=== PATIENT | male | born 1985 | race Caucasian/White ===

== ENCOUNTER 2016-12-25 12:31 | Outpatient (CLI) | payer BC ==
[~2016-12-25] VITALS: Ht 175.3 cm; Wt 86.2 kg
[~2016-12-25 12:31] MED LIST: /CIPR75TA OR; AMBI10TA OR; AMBI5TAB PO; ANUS2.5C2 PR; APRISO OR; COLA100C2 OR; FISH1000 PO; FLAG500T OR; IRON65TA PO; K-TA10TA2 PO; MIRALEX OR; MORP10EL PO; MORP15TA2 PO; MS C30TA PO; MULTCAP PO; MULTIVIT OR; NS 1,000 ML IV SCH; No Home Meds; PENT500C PO; PRED20TA OR; PRED20TA PO; PRED20TAB PO; REMICADE; VICO5TAB OR; ZOLO25TA PO; diphenhydrAMINE 25 MG CAP PO SCH; senna OR
[2016-12-25] MEDS ORDERED: inFLIXimab INJECTION 500 MG in NS 200 ML IV ONE (13:00)
== END 2016-12-25 15:00 | disposition home or self-care (01) ==
LOC: M INFU 12:31
PROVIDERS: ATTEND Internal Medicine Gastroenterology
DX: K51.90 Ulcerative colitis, unspecified, without complications (principal); Z79.899 Other long term (current) drug therapy
CPT/HCPCS: 96413; 96415; J1745

== ENCOUNTER 2017-01-05 00:21 | Emergency (ER) | payer BC ==
[~2017-01-05 00:21] MED LIST changes: -NS 1,000 ML IV SCH; -diphenhydrAMINE 25 MG CAP PO SCH
[2017-01-05] MEDS ORDERED: dexameTHASONE 4 MG/ML 1ML VIAL (J1100) As Ordered ONE (00:57)
[2017-01-05 01:04] LABS: BASO # 0.1 K/mm3 (0.0-0.2); BASO % 0.9 % (0.0-1.0); EOS % 0.9 % (0.0-3.0); LARGE UNSTAINED CELL # 0.2 K/mm3 (0.0-0.4); LARGE UNSTAINED CELL % 3.6 % (0.0-4.0); LYMPH % 33.3 % (24.0-44.0); MEAN CORPUSCULAR HEMOGLOBIN 27.8 pg (27.0-33.0); MEAN CORPUSCULAR HGB CONC 32.4 g/dl (32.0-36.5); MEAN CORPUSCULAR VOLUME 86.1 fl (80.0-96.0); MONO # 0.6 K/mm3 (0.0-0.8); MONO % 9.4 % (0.0-5.0); NEUTROPHILS # 3.1 K/mm3 (1.8-7.7); NEUTROPHILS % 51.9 % (36.0-66.0); PLATELET COUNT, AUTOMATED 204 k/mm3 (150-450); RED CELL DISTRIBUTION WIDTH 13.7 % (11.5-14.5); WHITE BLOOD COUNT 5.9 K/mm3 (4.0-10.0)
[2017-01-05 01:14] LABS: ABG BASE EXCESS 0.6 (-2.0-2.0); ABG DEVICE NASAL CANN; ABG HCO3 24.8 MEQ/L (22.0-26.0); ABG PARTIAL PRESSURE CO2 38.5 mmHg (35.0-45.0); ABG PARTIAL PRESSURE O2 90.7 mmHg (75.0-100.0); ABG TOTAL CO2 25.9 MEQ/L (22.0-29.0); ABG pH (ARTERIAL) 7.426 UNITS (7.350-7.450)
[2017-01-05 01:21] LABS: ALBUMIN 3.8 GM/DL (3.2-5.2); ALBUMIN/GLOBULIN RATIO 0.84 (1.00-1.93); ALKALINE PHOSPHATASE 124 U/L (45-117); ALT/SGPT 27 U/L (12-78); AMYLASE 48 U/L (25-115); ANION GAP 8 MEQ/L (8-16); AST/SGOT 25 U/L (15-37); BILIRUBIN,DIRECT < 0.1 MG/DL (0.0-0.2); BILIRUBIN,TOTAL 0.3 MG/DL (0.2-1.0); BLOOD UREA NITROGEN 14 MG/DL (7-18); CALCIUM LEVEL 8.1 MG/DL (8.5-10.1); CARBON DIOXIDE LEVEL 29 MEQ/L (21-32); CHLORIDE LEVEL 102 MEQ/L (98-107); CREATININE FOR GFR 0.88 MG/DL (0.70-1.30); GLOMERULAR FILTRATION RATE > 60.0 (>60); GLUCOSE, FASTING 99 MG/DL (70-105); POTASSIUM SERUM 3.5 MEQ/L (3.5-5.1); SODIUM LEVEL 139 MEQ/L (136-145); TOTAL PROTEIN 8.3 GM/DL (6.4-8.2)
[2017-01-05] MEDS ORDERED: HYDROmorphone HCL 1 MG/ML SYRINGE (J1170) As Ordered ONE (02:19)
--- NOTE | 2017-01-05 05:14 | EDDOCDS ---
Physician Documentation [facility] Name: Vijay Christensen Age: 31 yrs Sex: Male : 1985 Arrival Date: 01/05/2017 Time: 00:21 Bed 17 Private MD: Disposition: 01/05/17 04:59 Discharged to Home/Self Care. Impression: Crohn's disease [regional enteritis]. - Condition is Stable. - Medication Reconciliation, Local Pharmacy Hours form. - Follow up: Private Physician; When: Call to arrange an appointment; Reason: Recheck today's complaints. - Problem is chronic. - Symptoms have improved. Historical: - Allergies: No known drug Allergies; - Home Meds: 1. Fish Oil Oral daily 2. Multivitamin Oral daily 3. Remicade 100 mg intravenous solr every 8 wks - PMHx: c-diff; Crohn's; - PSHx: stool transplant; - Social history: Smoking status: Patient states was never smoker of tobacco. No barriers to communication noted, The patient speaks fluent Polish, Speaks appropriately for age. - Family history: Not pertinent. - : The pt / caregiver states he / she is not on anticoagulants. Home medication list is obtained from the patient. - Exposure Risk Screening:: None identified. Vital Signs: 01/05 00:36 BP 141 / 90 (auto/); Pulse 90; Resp 16; Temp 99(TE); Pulse Ox 98% on R/A; jo3 05:11 BP 124 / 77; Pulse 83; Resp 20; Temp 96.5(O); Pulse Ox 98% on R/A; Pain 0/10; jmv MDM: 00:29 ECG WITH READING ER PHYS+CARDIAG ordered. EDMS 00:34 IV Saline Lock ordered. cs11 00:34 NS 0.9% 1000 ml IV at bolus once ordered. cs11 00:35 Call Respiratory ordered. cs11 00:35 CBC with Diff Ordered. EDMS 00:35 MED Profile Ordered. EDMS 00:35 Liver Profile Ordered. EDMS 00:35 Amylase Ordered. EDMS 00:35 Lipase Ordered. EDMS 00:35 Cardiac Marker Panel Ordered. EDMS 00:35 -Arterial Blood Gas Ordered. EDMS 00:48 Call Respiratory complete. af2 00:55 Dexamethasone 12 mg IV at bolus once ordered. cs11 02:17 CBC with Diff Reviewed. cs11 02:17 MED Profile Reviewed. cs11 02:17 Liver Profile Reviewed. cs11 02:17 Amylase Reviewed. cs11 02:17 Lipase Reviewed. cs11 02:17 Cardiac Marker Panel Reviewed. cs11 02:17 -Arterial Blood Gas Reviewed. cs11 02:17 Dilaudid - HYDROmorphone 0.5 mg IVP once ordered. cs11 03:07 Financial registration complete. hs2 03:44 [facility] Payment Agreement was scanned into [employer] and attached to record. hs2 Administered Medications: 00:48 Drug: NS 0.9% 1000 ml [sodium chloride 0.9 % intravenous solution] Route: IV; Rate: af2 bolus; Site: right antecubital; 01:04 Drug: Dexamethasone 12 mg [dexamethasone 4 mg/mL injection solution] Route: IV; Rate: af2 bolus; Site: right antecubital; 02:13 Follow up: IV Status: Completed infusion af2 02:24 Drug: Dilaudid - HYDROmorphone 0.5 mg [hydromorphone 1 mg/mL injection syringe (0.5 af2 mL)] Route: IVP; Site: right antecubital; Signatures: Dispatcher [employer] EDBrandee Campbell RN RN jo3 Grant Orourke, DO cs11 Jyoti Acuña RN RN af2 Amy Seaman, Reg Reg hs2 The chart was reviewed and I authenticate all verbal orders and agree with the evaluation and treatment provided.Attachments: 03:44 [facility] Payment Agreement hs2 MTDD
--- NOTE | 2017-01-05 05:14 | EDDOCDS ---
Nurse's Notes [facility] Name: Vijay Christensen Age: 31 yrs Sex: Male : 1985 Arrival Date: 01/05/2017 Time: 00:21 Bed 17 Private MD: Diagnosis: Crohn's disease [regional enteritis] Presentation: 01/05 00:28 Presenting complaint: Patient states: Mid anterior chest pain which pt describe as jo3 heaviness/pressure with SOB. Also having a Crohn's flare up. EKG completed 2 weeks ago for mild chest pain and pt believes it was normal. states that pain and SOB has worsened. Adult Sepsis Screening:. Suicide/Homicide risk assessment- the patient denies having any suicidal and/or homicidal ideations and does not present with any other emotional, behavioral or mental health complaints. 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 Transition of care: patient was not received from another setting of care. 00:28 Method Of Arrival: Walkin/Carried/Asstd jo3 00:28 Acuity: Unassigned jo3 00:49 Adult Sepsis Screening: The patient does not have new or worsening altered mentation. jo3 Patient's respiratory rate is less than 22. Systolic blood pressure is greater than 100. Patient has a qSOFA score of 0- Negative Sepsis Screen. 00:49 Acuity: TORI Level 3 jo3 Triage Assessment: 00:34 General: Appears in no apparent distress. HIV screening NA for this visit Offered jo3 previously. Neurological: Level of Consciousness is awake, alert, Oriented to person, place, time. Cardiovascular: Chest pain is located in mid anterior chest. Respiratory: Airway is patent Respiratory effort is. Derm: Skin is Skin is pink, warm & dry. Historical: - Allergies: No known drug Allergies; - Home Meds: 1. Fish Oil Oral daily 2. Multivitamin Oral daily 3. Remicade 100 mg intravenous solr every 8 wks - PMHx: c-diff; Crohn's; - PSHx: stool transplant; - Social history: Smoking status: Patient states was never smoker of tobacco. No barriers to communication noted, The patient speaks fluent Azerbaijani, Speaks appropriately for age. - Family history: Not pertinent. - : The pt / caregiver states he / she is not on anticoagulants. Home medication list is obtained from the patient. - Exposure Risk Screening:: None identified. Screenin:49 Screening information is obtained from the patient. Fall risk: No risks identified. af2 Assistance ADL's: requires no assistance with activities of daily living. Abuse/DV Screen: The patient / caregiver reports he/she is: not in a situation that causes fear, pain or injury. Nutritional screening: No deficits noted. Advance Directives: Further advance directive information is declined. home support is adequate. Assessment: 00:49 General: Appears in no apparent distress, comfortable, Behavior is appropriate for age, af2 cooperative. Neurological: Level of Consciousness is awake, alert, obeys commands, Oriented to person, place, time. Cardiovascular: Rhythm is sinus rhythm No ectopy. Chest pain reproducible with deep breaths. . Respiratory: Airway is patent Respiratory effort is even, unlabored, Respiratory pattern is regular, symmetrical, Breath sounds are clear in right upper lobe, left upper lobe, right middle lobe, left lower lobe and right lower lobe Reports shortness of breath at rest. GI: Reports bloody stools diarrhea, lower abdominal pain, nausea. Derm: Skin is normal. 01:59 General: Appears in no apparent distress, comfortable, Behavior is appropriate for age, af2 cooperative. Neurological: Level of Consciousness is awake, alert, obeys commands, Oriented to person, place, time. Respiratory: Airway is patent Respiratory effort is even, unlabored. Derm: Skin is normal. 03:00 General: Appears in no apparent distress, comfortable, Behavior is appropriate for age, af2 cooperative. Neurological: Level of Consciousness is awake, alert, obeys commands, Oriented to person, place, time. Respiratory: Airway is patent Respiratory effort is even, unlabored. Derm: Skin is normal. 04:00 General: Appears in no apparent distress, comfortable, Behavior is appropriate for age, af2 cooperative. Respiratory: Airway is patent Respiratory effort is even, unlabored. Derm: Skin is normal. 05:12 General: Appears in no apparent distress, comfortable, Behavior is appropriate for age, af2 cooperative. Neurological: Level of Consciousness is awake, alert, obeys commands. Respiratory: Airway is patent Respiratory effort is even, unlabored. Derm: Skin is pink, warm & dry. Vital Signs: 00:36 BP 141 / 90 (auto/); Pulse 90; Resp 16; Temp 99(TE); Pulse Ox 98% on R/A; jo3 05:11 BP 124 / 77; Pulse 83; Resp 20; Temp 96.5(O); Pulse Ox 98% on R/A; Pain 0/10; jmv Vitals: 00:34 Log In Time: January 05, 2017 at 00:23. jo3 ED Course: 00:22 Patient visited by mAy Seaman Reg. hs2 00:22 Patient moved to Waiting hs2 00:25 Jyoti Acuña RN is Primary Nurse. jo3 00:25 Patient moved to 17 jo3 00:26 Grant Orourke DO is Attending Physician. cs11 00:26 Patient visited by Grant Orourke DO. cs11 00:33 Triage Initiated jo3 00:35 Patient visited by Brandee Javed RN. jo3 00:48 CBC with Diff Sent. af2 00:48 MED Profile Sent. af2 00:49 Patient visited by Chavo Barron PCA. jmv 00:49 Pt greeted and oriented to ED. Patient advised of names of staff involved in care, [facility] location of call encarnacion, wait times and NPO status. Patient has correct armband on for positive identification. Placed in gown. Bed in low position. Call light in reach. Side rails up X2. monitoring manager on. Pulse ox on. NIBP on. 00:49 Liver Profile Sent. af2 00:49 Amylase Sent. af2 00:49 Lipase Sent. af2 00:49 Cardiac Marker Panel Sent. af2 00:49 EKG done. (by ED staff). Reviewed by Gratn Orourke DO. jmv 00:51 Patient visited by Jyoti Acuña RN. af2 01:08 -Arterial Blood Gas Sent. jh6 01:52 Patient visited by Jyoti Acuña RN. af2 01:59 Patient visited by Jyoti Acuña RN. af2 02:14 Patient visited by Jyoti Acuña RN. af2 03:15 Patient visited by Jyoti Acuña RN. af2 03:33 Patient visited by Jyoti Acuña RN. af2 03:44 [facility] Payment Agreement was scanned into [employer] and attached to record. hs2 04:48 Patient visited by Jyoti Acuña RN. af2 05:12 Patient visited by Chavo Barron PCA. jmv 05:13 The patient / caregiver is instructed regarding the plan of care and ED course. af2 05:13 Inserted saline lock: 18 gauge in right antecubital area and blood collected. The af2 patient tolerated the procedure well. 05:13 Discontinued IV lock intact, bleeding controlled, pressure dressing applied, No af2 redness/swelling at site. No procedures done that require assistance. Administered Medications: 00:48 Drug: NS 0.9% 1000 ml [sodium chloride 0.9 % intravenous solution] Route: IV; Rate: af2 bolus; Site: right antecubital; 01:04 Drug: Dexamethasone 12 mg [dexamethasone 4 mg/mL injection solution] Route: IV; Rate: af2 bolus; Site: right antecubital; 02:13 Follow up: IV Status: Completed infusion af2 02:24 Drug: Dilaudid - HYDROmorphone 0.5 mg [hydromorphone 1 mg/mL injection syringe (0.5 af2 mL)] Route: IVP; Site: right antecubital; RT: 01:08 ABG's drawn from right radial artery pressure held for 5 minutes no bleeding noted jh6 pressure bandage applied specimen sent pt. tolerated well. Order Results: Lab Order: CBC with Diff; SPEC'M 01/05/17 00:46 Test: WHITE BLOOD COUNT; Value: 5.9; Range: 4.0-10.0; Units: K/mm3; Status: F Test: RED BLOOD COUNT; Value: 5.16; Range: 4.30-6.10; Units: M/mm3; Status: F Test: HEMOGLOBIN; Value: 14.4; Range: 14.0-18.0; Units: g/dl; Status: F Test: HEMATOCRIT; Value: 44.4; Range: 42.0-52.0; Units: %; Status: F Test: MEAN CORPUSCULAR VOLUME; Value: 86.1; Range: 80.0-96.0; Units: fl; Status: F Test: MEAN CORPUSCULAR HEMOGLOBIN; Value: 27.8; Range: 27.0-33.0; Units: pg; Status: F Test: MEAN CORPUSCULAR HGB CONC; Value: 32.4; Range: 32.0-36.5; Units: g/dl; Status: F Test: RED CELL DISTRIBUTION WIDTH; Value: 13.7; Range: 11.5-14.5; Units: %; Status: F Test: PLATELET COUNT, AUTOMATED; Value: 204; Range: 150-450; Units: k/mm3; Status: F Test: NEUTROPHILS %; Value: 51.9; Range: 36.0-66.0; Units: %; Status: F Test: LYMPH %; Value: 33.3; Range: 24.0-44.0; Units: %; Status: F Test: MONO %; Value: 9.4; Range: 0.0-5.0; Abnormal: Above high normal; Units: %; Status: F Test: EOS %; Value: 0.9; Range: 0.0-3.0; Units: %; Status: F Test: BASO %; Value: 0.9; Range: 0.0-1.0; Units: %; Status: F Test: LARGE UNSTAINED CELL %; Value: 3.6; Range: 0.0-4.0; Units: %; Status: F Test: NEUTROPHILS #; Value: 3.1; Range: 1.8-7.7; Units: K/mm3; Status: F Test: LYMPH #; Value: 2.0; Range: 1.5-4.5; Units: K/mm3; Status: F Test: MONO #; Value: 0.6; Range: 0.0-0.8; Units: K/mm3; Status: F Test: EOS #; Value: 0.0; Range: 0.0-0.50; Units: K/mm3; Status: F Test: BASO #; Value: 0.1; Range: 0.0-0.2; Units: K/mm3; Status: F Test: LARGE UNSTAINED CELL #; Value: 0.2; Range: 0.0-0.4; Units: K/mm3; Status: F Lab Order: [facility] Profile; [facility]'01/05/17 00:46 Test: GLUCOSE, FASTING; Value: 99; Range: 70-105; Units: MG/DL; Status: F Test: BLOOD UREA NITROGEN; Value: 14; Range: 7-18; Units: MG/DL; Status: F Test: CREATININE FOR GFR; Value: 0.88; Range: 0.70-1.30; Units: MG/DL; Status: F Test: GLOMERULAR FILTRATION RATE; Value: > 60.0; Range: >60; Status: F Test: SODIUM LEVEL; Value: 139; Range: 136-145; Units: MEQ/L; Status: F Test: POTASSIUM SERUM; Value: 3.5; Range: 3.5-5.1; Units: MEQ/L; Status: F Test: CHLORIDE LEVEL; Value: 102; Range: 98-107; Units: MEQ/L; Status: F Test: CARBON DIOXIDE LEVEL; Value: 29; Range: 21-32; Units: MEQ/L; Status: F Test: ANION GAP; Value: 8; Range: 8-16; Units: MEQ/L; Status: F Test: CALCIUM LEVEL; Value: 8.1; Range: 8.5-10.1; Abnormal: Below low normal; Units: MG/DL; Status: F Test Note: ; Units are mL/min/1.73 m2 Chronic Kidney Disease Staging per NKF: Stage I & II GFR >=60 Normal to Mildly Decreased Stage III GFR 30-59 Moderately Decreased Stage IV GFR 15-29 Severely Decreased Stage V GFR <15 Very Little GFR Left ESRD GFR <15 on MANAGER PEDIATRIC Lab Order: Liver Profile; [facility]'01/05/17 00:46 Test: AST/SGOT; Value: 25; Range: 15-37; Units: U/L; Status: F Test: ALT/SGPT; Value: 27; Range: 12-78; Units: U/L; Status: F Test: ALKALINE PHOSPHATASE; Value: 124; Range: 45-117; Abnormal: Above high normal; Units: U/L; Status: F Test: BILIRUBIN,TOTAL; Value: 0.3; Range: 0.2-1.0; Units: MG/DL; Status: F Test: BILIRUBIN,DIRECT; Value: < 0.1; Range: 0.0-0.2; Units: MG/DL; Status: F Test: TOTAL PROTEIN; Value: 8.3; Range: 6.4-8.2; Abnormal: Above high normal; Units: GM/DL; Status: F Test: ALBUMIN; Value: 3.8; Range: 3.2-5.2; Units: GM/DL; Status: F Test: ALBUMIN/GLOBULIN RATIO; Value: 0.84; Range: 1.00-1.93; Abnormal: Below low normal; Status: F Lab Order: Amylase; [facility] 01/05/17 00:46 Test: AMYLASE; Value: 48; Range: 25-115; Units: U/L; Status: F Lab Order: Lipase; [facility] 01/05/17 00:46 Test: LIPASE; Value: 185; Range: 73-393; Units: U/L; Status: F Lab Order: Cardiac Marker Panel; [facility] 01/05/17 00:46 Test: CPK CREATINE PHOSPHOKINASE; Value: 205; Range: 39-308; Units: U/L; Status: F Test: CK-MB VALUE MASS; Value: 1.2; Range: 0.0-3.6; Units: NG/ML; Status: F Test: MB/CK RELATIVE INDEX; Value: 0.58; Range: < OR =4; Status: F Test: TROPONIN I; Value: < 0.02; Range: < 0.10; Units: NG/ML; Status: F Test Note: ; DIAGNOSIS CRITERIA MMB ng/ml Relative Index (RI) NON-AMI < or = 5 N/A [place] ZONE > 5 < or = 4 AMI > 5 > 4 Lab Order: -Arterial Blood Gas; 01/05/17 01:01 Test: ABG pH (ARTERIAL); Value: 7.426; Range: 7.350-7.450; Units: UNITS; Status: F Test: ABG PARTIAL PRESSURE CO2; Value: 38.5; Range: 35.0-45.0; Units: mmHg; Status: F Test: ABG PARTIAL PRESSURE O2; Value: 90.7; Range: 75.0-100.0; Units: mmHg; Status: F Test: ABG TOTAL CO2; Value: 25.9; Range: 22.0-29.0; Units: MEQ/L; Status: F Test: ABG HCO3; Value: 24.8; Range: 22.0-26.0; Units: MEQ/L; Status: F Test: ABG BASE EXCESS; Value: 0.6; Range: -2.0-2.0; Status: F Test: ABG STANDARD HCO3; Value: 25.0; Range: 22.0-26.0; Units: MEQ/L; Status: F Test: ABG O2 SATURATION; Value: 97.3; Range: 95.0-99.0; Units: %; Status: F Test: ABG DEVICE; Value: NASAL BRYAN; Status: F Outcome: 04:59 Discharge ordered by Provider. cs11 05:13 Patient left the ED. af2 Signatures: Brandee Javed RN RN Alon Ross jh6 Grant Orourke, DO cs11 Jyoti Acuña RN RN af2 Amy Seaman, Reg Reg hs2 Chavo Barron, KJ DOCKMASTER jmv MTDD
--- NOTE | 2017-01-05 07:29 | ECGEPIP ---
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
--- NOTE | 2017-01-07 06:14 | EDDOCDS ---
Physician Documentation [facility] Name: Vijay Christensen Age: 31 yrs Sex: Male : 1985 Arrival Date: 01/05/2017 Time: 00:21 Bed 17 Private MD: Disposition: 01/05/17 04:59 Discharged to Home/Self Care. Impression: Crohn's disease [regional enteritis]. - Condition is Stable. - Medication Reconciliation, Local Pharmacy Hours form. - Follow up: Private Physician; When: Call to arrange an appointment; Reason: Recheck today's complaints. - Problem is chronic. - Symptoms have improved. Historical: - Allergies: No known drug Allergies; - Home Meds: 1. Fish Oil Oral daily 2. Multivitamin Oral daily 3. Remicade 100 mg intravenous solr every 8 wks - PMHx: c-diff; Crohn's; - PSHx: stool transplant; - Social history: Smoking status: Patient states was never smoker of tobacco. No barriers to communication noted, The patient speaks fluent Mongolian, Speaks appropriately for age. - Family history: Not pertinent. - : The pt / caregiver states he / she is not on anticoagulants. Home medication list is obtained from the patient. - Exposure Risk Screening:: None identified. Vital Signs: 01/05 00:36 BP 141 / 90 (auto/); Pulse 90; Resp 16; Temp 99(TE); Pulse Ox 98% on R/A; jo3 05:11 BP 124 / 77; Pulse 83; Resp 20; Temp 96.5(O); Pulse Ox 98% on R/A; Pain 0/10; jmv MDM: 00:29 ECG WITH READING ER PHYS+CARDIAG ordered. EDMS 00:34 IV Saline Lock ordered. cs11 00:34 NS 0.9% 1000 ml IV at bolus once ordered. cs11 00:35 Call Respiratory ordered. cs11 00:35 CBC with Diff Ordered. EDMS 00:35 MED Profile Ordered. EDMS 00:35 Liver Profile Ordered. EDMS 00:35 Amylase Ordered. EDMS 00:35 Lipase Ordered. EDMS 00:35 Cardiac Marker Panel Ordered. EDMS 00:35 -Arterial Blood Gas Ordered. EDMS 00:48 Call Respiratory complete. af2 00:55 Dexamethasone 12 mg IV at bolus once ordered. cs11 02:17 CBC with Diff Reviewed. cs11 02:17 MED Profile Reviewed. cs11 02:17 Liver Profile Reviewed. cs11 02:17 Amylase Reviewed. cs11 02:17 Lipase Reviewed. cs11 02:17 Cardiac Marker Panel Reviewed. cs11 02:17 -Arterial Blood Gas Reviewed. cs11 02:17 Dilaudid - HYDROmorphone 0.5 mg IVP once ordered. cs11 03:07 Financial registration complete. hs2 03:44 [facility] Payment Agreement was scanned into [employer] and attached to record. hs2 09: T-Sheet-- Draft Copy was scanned into [employer] and attached to record. seh Administered Medications: 00:48 Drug: NS 0.9% 1000 ml [sodium chloride 0.9 % intravenous solution] Route: IV; Rate: af2 bolus; Site: right antecubital; 01:04 Drug: Dexamethasone 12 mg [dexamethasone 4 mg/mL injection solution] Route: IV; Rate: af2 bolus; Site: right antecubital; 02:13 Follow up: IV Status: Completed infusion af2 02:24 Drug: Dilaudid - HYDROmorphone 0.5 mg [hydromorphone 1 mg/mL injection syringe (0.5 af2 mL)] Route: IVP; Site: right antecubital; Signatures: Dispatcher [employer] Brandee Thomas RN RN jo3 Grant Orourke, DO cs11 Jyoti Acuña RN RN af2 Amy Seaman, Reg Reg hs2 Aminah Corley [facility] The chart was reviewed and I authenticate all verbal orders and agree with the evaluation and treatment provided.Attachments: 03:44 [facility] Payment Agreement hs2 09:02 T-Sheet-- Draft Copy seh Chart Complete MTDD
--- NOTE | 2017-01-07 06:14 | EDDOCDS ---
Physician Documentation [facility] Name: Vijay Christensen Age: 31 yrs Sex: Male : 1985 Arrival Date: 01/05/2017 Time: 00:21 Bed 17 Private MD: Disposition: 01/05/17 04:59 Discharged to Home/Self Care. Impression: Crohn's disease [regional enteritis]. - Condition is Stable. - Medication Reconciliation, Local Pharmacy Hours form. - Follow up: Private Physician; When: Call to arrange an appointment; Reason: Recheck today's complaints. - Problem is chronic. - Symptoms have improved. Historical: - Allergies: No known drug Allergies; - Home Meds: 1. Fish Oil Oral daily 2. Multivitamin Oral daily 3. Remicade 100 mg intravenous solr every 8 wks - PMHx: c-diff; Crohn's; - PSHx: stool transplant; - Social history: Smoking status: Patient states was never smoker of tobacco. No barriers to communication noted, The patient speaks fluent Maltese, Speaks appropriately for age. - Family history: Not pertinent. - : The pt / caregiver states he / she is not on anticoagulants. Home medication list is obtained from the patient. - Exposure Risk Screening:: None identified. Vital Signs: 01/05 00:36 BP 141 / 90 (auto/); Pulse 90; Resp 16; Temp 99(TE); Pulse Ox 98% on R/A; jo3 05:11 BP 124 / 77; Pulse 83; Resp 20; Temp 96.5(O); Pulse Ox 98% on R/A; Pain 0/10; jmv MDM: 00:29 ECG WITH READING ER PHYS+CARDIAG ordered. EDMS 00:34 IV Saline Lock ordered. cs11 00:34 NS 0.9% 1000 ml IV at bolus once ordered. cs11 00:35 Call Respiratory ordered. cs11 00:35 CBC with Diff Ordered. EDMS 00:35 MED Profile Ordered. EDMS 00:35 Liver Profile Ordered. EDMS 00:35 Amylase Ordered. EDMS 00:35 Lipase Ordered. EDMS 00:35 Cardiac Marker Panel Ordered. EDMS 00:35 -Arterial Blood Gas Ordered. EDMS 00:48 Call Respiratory complete. af2 00:55 Dexamethasone 12 mg IV at bolus once ordered. cs11 02:17 CBC with Diff Reviewed. cs11 02:17 MED Profile Reviewed. cs11 02:17 Liver Profile Reviewed. cs11 02:17 Amylase Reviewed. cs11 02:17 Lipase Reviewed. cs11 02:17 Cardiac Marker Panel Reviewed. cs11 02:17 -Arterial Blood Gas Reviewed. cs11 02:17 Dilaudid - HYDROmorphone 0.5 mg IVP once ordered. cs11 03:07 Financial registration complete. hs2 03:44 [facility] Payment Agreement was scanned into [email or web address] and attached to record. hs2 09: T-Sheet-- Draft Copy was scanned into [email or web address] and attached to record. seh Administered Medications: 00:48 Drug: NS 0.9% 1000 ml [sodium chloride 0.9 % intravenous solution] Route: IV; Rate: af2 bolus; Site: right antecubital; 01:04 Drug: Dexamethasone 12 mg [dexamethasone 4 mg/mL injection solution] Route: IV; Rate: af2 bolus; Site: right antecubital; 02:13 Follow up: IV Status: Completed infusion af2 02:24 Drug: Dilaudid - HYDROmorphone 0.5 mg [hydromorphone 1 mg/mL injection syringe (0.5 af2 mL)] Route: IVP; Site: right antecubital; Signatures: Dispatcher [employer] Brandee Thomas RN RN jo3 Grant Orourke, DO cs11 Jyoti Acuña RN RN af2 Amy Seaman, Reg Reg hs2 Aminah Corley [facility] The chart was reviewed and I authenticate all verbal orders and agree with the evaluation and treatment provided.Attachments: 03:44 [facility] Payment Agreement hs2 09:02 T-Sheet-- Draft Copy seh Chart Complete MTDD
--- NOTE | 2017-01-07 06:14 | EDDOCDS ---
Nurse's Notes [facility] Name: Vijay Blum Age: 31 yrs Sex: Male : 1985 Arrival Date: 01/05/2017 Time: 00:21 Bed 17 Private MD: Diagnosis: Crohn's disease [regional enteritis] Presentation: 01/05 00:28 Presenting complaint: Patient states: Mid anterior chest pain which pt describe as jo3 heaviness/pressure with SOB. Also having a Crohn's flare up. EKG completed 2 weeks ago for mild chest pain and pt believes it was normal. states that pain and SOB has worsened. Adult Sepsis Screening:. Suicide/Homicide risk assessment- the patient denies having any suicidal and/or homicidal ideations and does not present with any other emotional, behavioral or mental health complaints. Status: Patient is not a customer service officer or dependent. Transition of care: patient was not received from another setting of care. 00:28 Method Of Arrival: Walkin/Carried/Asstd jo3 00:28 Acuity: Unassigned jo3 00:49 Adult Sepsis Screening: The patient does not have new or worsening altered mentation. jo3 Patient's respiratory rate is less than 22. Systolic blood pressure is greater than 100. Patient has a qSOFA score of 0- Negative Sepsis Screen. 00:49 Acuity: TORI Level 3 jo3 Triage Assessment: 00:34 General: Appears in no apparent distress. HIV screening NA for this visit Offered jo3 previously. Neurological: Level of Consciousness is awake, alert, Oriented to person, place, time. Cardiovascular: Chest pain is located in mid anterior chest. Respiratory: Airway is patent Respiratory effort is. Derm: Skin is Skin is pink, warm & dry. Historical: - Allergies: No known drug Allergies; - Home Meds: 1. Fish Oil Oral daily 2. Multivitamin Oral daily 3. Remicade 100 mg intravenous solr every 8 wks - PMHx: c-diff; Crohn's; - PSHx: stool transplant; - Social history: Smoking status: Patient states was never smoker of tobacco. No barriers to communication noted, The patient speaks fluent Indian, Speaks appropriately for age. - Family history: Not pertinent. - : The pt / caregiver states he / she is not on anticoagulants. Home medication list is obtained from the patient. - Exposure Risk Screening:: None identified. Screenin:49 Screening information is obtained from the patient. Fall risk: No risks identified. af2 Assistance ADL's: requires no assistance with activities of daily living. Abuse/DV Screen: The patient / caregiver reports he/she is: not in a situation that causes fear, pain or injury. Nutritional screening: No deficits noted. Advance Directives: Further advance directive information is declined. home support is adequate. Assessment: 00:49 General: Appears in no apparent distress, comfortable, Behavior is appropriate for age, af2 cooperative. Neurological: Level of Consciousness is awake, alert, obeys commands, Oriented to person, place, time. Cardiovascular: Rhythm is sinus rhythm No ectopy. Chest pain reproducible with deep breaths. . Respiratory: Airway is patent Respiratory effort is even, unlabored, Respiratory pattern is regular, symmetrical, Breath sounds are clear in right upper lobe, left upper lobe, right middle lobe, left lower lobe and right lower lobe Reports shortness of breath at rest. GI: Reports bloody stools diarrhea, lower abdominal pain, nausea. Derm: Skin is normal. 01:59 General: Appears in no apparent distress, comfortable, Behavior is appropriate for age, af2 cooperative. Neurological: Level of Consciousness is awake, alert, obeys commands, Oriented to person, place, time. Respiratory: Airway is patent Respiratory effort is even, unlabored. Derm: Skin is normal. 03:00 General: Appears in no apparent distress, comfortable, Behavior is appropriate for age, af2 cooperative. Neurological: Level of Consciousness is awake, alert, obeys commands, Oriented to person, place, time. Respiratory: Airway is patent Respiratory effort is even, unlabored. Derm: Skin is normal. 04:00 General: Appears in no apparent distress, comfortable, Behavior is appropriate for age, af2 cooperative. Respiratory: Airway is patent Respiratory effort is even, unlabored. Derm: Skin is normal. 05:12 General: Appears in no apparent distress, comfortable, Behavior is appropriate for age, af2 cooperative. Neurological: Level of Consciousness is awake, alert, obeys commands. Respiratory: Airway is patent Respiratory effort is even, unlabored. Derm: Skin is pink, warm & dry. Vital Signs: 00:36 BP 141 / 90 (auto/); Pulse 90; Resp 16; Temp 99(TE); Pulse Ox 98% on R/A; jo3 05:11 BP 124 / 77; Pulse 83; Resp 20; Temp 96.5(O); Pulse Ox 98% on R/A; Pain 0/10; jmv Vitals: 00:34 Log In Time: January 05, 2017 at 00:23. jo3 ED Course: 00:22 Patient visited by Amy Seaman Reg. hs2 00:22 Patient moved to Waiting hs2 00:25 Jyoti Acuña RN is Primary Nurse. jo3 00:25 Patient moved to 17 jo3 00:26 Grant Brothers DO is Attending Physician. cs11 00:26 Patient visited by Grant Brothers DO. cs11 00:33 Triage Initiated jo3 00:35 Patient visited by Brandee Javed RN. jo3 00:48 CBC with Diff Sent. af2 00:48 MED Profile Sent. af2 00:49 Patient visited by Chavo Barron PCA. jmv 00:49 Pt greeted and oriented to ED. Patient advised of names of staff involved in care, [facility] location of call encarnacion, wait times and NPO status. Patient has correct armband on for positive identification. Placed in gown. Bed in low position. Call light in reach. Side rails up X2. technical sales representatives on. Pulse ox on. NIBP on. 00:49 Liver Profile Sent. af2 00:49 Amylase Sent. af2 00:49 Lipase Sent. af2 00:49 Cardiac Marker Panel Sent. af2 00:49 EKG done. (by ED staff). Reviewed by Grant Brothers DO. jmv 00:51 Patient visited by Jyoti Acuña RN. af2 01:08 -Arterial Blood Gas Sent. jh6 01:52 Patient visited by Jyoti Acuña RN. af2 01:59 Patient visited by Jyoti Acuña RN. af2 02:14 Patient visited by Jyoti Acuña RN. af2 03:15 Patient visited by Jyoti Acuña RN. af2 03:33 Patient visited by Jyoti Acuña RN. af2 03:44 [facility] Payment Agreement was scanned into [employer] and attached to record. hs2 04:48 Patient visited by Jyoti Acuña RN. af2 05:12 Patient visited by Chavo Barron PCA. jmv 05:13 The patient / caregiver is instructed regarding the plan of care and ED course. af2 05:13 Inserted saline lock: 18 gauge in right antecubital area and blood collected. The af2 patient tolerated the procedure well. 05:13 Discontinued IV lock intact, bleeding controlled, pressure dressing applied, No af2 redness/swelling at site. No procedures done that require assistance. 07:31 EKG-ADULT Returned. EDMS 09:02 T-Sheet-- Draft Copy was scanned into [employer] and attached to record. seh Administered Medications: 00:48 Drug: NS 0.9% 1000 ml [sodium chloride 0.9 % intravenous solution] Route: IV; Rate: af2 bolus; Site: right antecubital; 01:04 Drug: Dexamethasone 12 mg [dexamethasone 4 mg/mL injection solution] Route: IV; Rate: af2 bolus; Site: right antecubital; 02:13 Follow up: IV Status: Completed infusion af2 02:24 Drug: Dilaudid - HYDROmorphone 0.5 mg [hydromorphone 1 mg/mL injection syringe (0.5 af2 mL)] Route: IVP; Site: right antecubital; RT: 01:08 ABG's drawn from right radial artery pressure held for 5 minutes no bleeding noted jh6 pressure bandage applied specimen sent pt. tolerated well. Order Results: Lab Order: CBC with Diff; SPEC'M 01/05/17 00:46 Test: WHITE BLOOD COUNT; Value: 5.9; Range: 4.0-10.0; Units: K/mm3; Status: F Test: RED BLOOD COUNT; Value: 5.16; Range: 4.30-6.10; Units: M/mm3; Status: F Test: HEMOGLOBIN; Value: 14.4; Range: 14.0-18.0; Units: g/dl; Status: F Test: HEMATOCRIT; Value: 44.4; Range: 42.0-52.0; Units: %; Status: F Test: MEAN CORPUSCULAR VOLUME; Value: 86.1; Range: 80.0-96.0; Units: fl; Status: F Test: MEAN CORPUSCULAR HEMOGLOBIN; Value: 27.8; Range: 27.0-33.0; Units: pg; Status: F Test: MEAN CORPUSCULAR HGB CONC; Value: 32.4; Range: 32.0-36.5; Units: g/dl; Status: F Test: RED CELL DISTRIBUTION WIDTH; Value: 13.7; Range: 11.5-14.5; Units: %; Status: F Test: PLATELET COUNT, AUTOMATED; Value: 204; Range: 150-450; Units: k/mm3; Status: F Test: NEUTROPHILS %; Value: 51.9; Range: 36.0-66.0; Units: %; Status: F Test: LYMPH %; Value: 33.3; Range: 24.0-44.0; Units: %; Status: F Test: MONO %; Value: 9.4; Range: 0.0-5.0; Abnormal: Above high normal; Units: %; Status: F Test: EOS %; Value: 0.9; Range: 0.0-3.0; Units: %; Status: F Test: BASO %; Value: 0.9; Range: 0.0-1.0; Units: %; Status: F Test: LARGE UNSTAINED CELL %; Value: 3.6; Range: 0.0-4.0; Units: %; Status: F Test: NEUTROPHILS #; Value: 3.1; Range: 1.8-7.7; Units: K/mm3; Status: F Test: LYMPH #; Value: 2.0; Range: 1.5-4.5; Units: K/mm3; Status: F Test: MONO #; Value: 0.6; Range: 0.0-0.8; Units: K/mm3; Status: F Test: EOS #; Value: 0.0; Range: 0.0-0.50; Units: K/mm3; Status: F Test: BASO #; Value: 0.1; Range: 0.0-0.2; Units: K/mm3; Status: F Test: LARGE UNSTAINED CELL #; Value: 0.2; Range: 0.0-0.4; Units: K/mm3; Status: F Lab Order: MED Profile; [facility] 01/05/17 00:46 Test: GLUCOSE, FASTING; Value: 99; Range: 70-105; Units: MG/DL; Status: F Test: BLOOD UREA NITROGEN; Value: 14; Range: 7-18; Units: MG/DL; Status: F Test: CREATININE FOR GFR; Value: 0.88; Range: 0.70-1.30; Units: MG/DL; Status: F Test: GLOMERULAR FILTRATION RATE; Value: > 60.0; Range: >60; Status: F Test: SODIUM LEVEL; Value: 139; Range: 136-145; Units: MEQ/L; Status: F Test: POTASSIUM SERUM; Value: 3.5; Range: 3.5-5.1; Units: MEQ/L; Status: F Test: CHLORIDE LEVEL; Value: 102; Range: 98-107; Units: MEQ/L; Status: F Test: CARBON DIOXIDE LEVEL; Value: 29; Range: 21-32; Units: MEQ/L; Status: F Test: ANION GAP; Value: 8; Range: 8-16; Units: MEQ/L; Status: F Test: CALCIUM LEVEL; Value: 8.1; Range: 8.5-10.1; Abnormal: Below low normal; Units: MG/DL; Status: F Test Note: ; Units are mL/min/1.73 m2 Chronic Kidney Disease Staging per NKF: Stage I & II GFR >=60 Normal to Mildly Decreased Stage III GFR 30-59 Moderately Decreased Stage IV GFR 15-29 Severely Decreased Stage V GFR <15 Very Little GFR Left ESRD GFR <15 on TELECOMMUNICATIONS FIELD TECHNICIAN Lab Order: Liver Profile; SPEC'01/05/17 00:46 Test: AST/SGOT; Value: 25; Range: 15-37; Units: U/L; Status: F Test: ALT/SGPT; Value: 27; Range: 12-78; Units: U/L; Status: F Test: ALKALINE PHOSPHATASE; Value: 124; Range: 45-117; Abnormal: Above high normal; Units: U/L; Status: F Test: BILIRUBIN,TOTAL; Value: 0.3; Range: 0.2-1.0; Units: MG/DL; Status: F Test: BILIRUBIN,DIRECT; Value: < 0.1; Range: 0.0-0.2; Units: MG/DL; Status: F Test: TOTAL PROTEIN; Value: 8.3; Range: 6.4-8.2; Abnormal: Above high normal; Units: GM/DL; Status: F Test: ALBUMIN; Value: 3.8; Range: 3.2-5.2; Units: GM/DL; Status: F Test: ALBUMIN/GLOBULIN RATIO; Value: 0.84; Range: 1.00-1.93; Abnormal: Below low normal; Status: F Lab Order: Amylase; [facility] 01/05/17 00:46 Test: AMYLASE; Value: 48; Range: 25-115; Units: U/L; Status: F Lab Order: Lipase; [facility] 01/05/17 00:46 Test: LIPASE; Value: 185; Range: 73-393; Units: U/L; Status: F Lab Order: Cardiac Marker Panel; [facility] 01/05/17 00:46 Test: CPK CREATINE PHOSPHOKINASE; Value: 205; Range: 39-308; Units: U/L; Status: F Test: CK-MB VALUE MASS; Value: 1.2; Range: 0.0-3.6; Units: NG/ML; Status: F Test: MB/CK RELATIVE INDEX; Value: 0.58; Range: < OR =4; Status: F Test: TROPONIN I; Value: < 0.02; Range: < 0.10; Units: NG/ML; Status: F Test Note: ; DIAGNOSIS CRITERIA MMB ng/ml Relative Index (RI) NON-AMI < or = 5 N/A [place]ONE > 5 < or = 4 AMI > 5 > 4 Lab Order: -Arterial Blood Gas; [facility] 01/05/17 01:01 Test: ABG pH (ARTERIAL); Value: 7.426; Range: 7.350-7.450; Units: UNITS; Status: F Test: ABG PARTIAL PRESSURE CO2; Value: 38.5; Range: 35.0-45.0; Units: mmHg; Status: F Test: ABG PARTIAL PRESSURE O2; Value: 90.7; Range: 75.0-100.0; Units: mmHg; Status: F Test: ABG TOTAL CO2; Value: 25.9; Range: 22.0-29.0; Units: MEQ/L; Status: F Test: ABG HCO3; Value: 24.8; Range: 22.0-26.0; Units: MEQ/L; Status: F Test: ABG BASE EXCESS; Value: 0.6; Range: -2.0-2.0; Status: F Test: ABG STANDARD HCO3; Value: 25.0; Range: 22.0-26.0; Units: MEQ/L; Status: F Test: ABG O2 SATURATION; Value: 97.3; Range: 95.0-99.0; Units: %; Status: F Test: ABG DEVICE; Value: NASAL BRYAN; Status: F Radiology Order: EKG-ADULT Test: EKG-ADULT REASON FOR EXAMINATION: Chest Pain; Stationary ECG Study; [facility] - ED; ; Test Date: 2017-01-05; Pat Name: VIJAY BLUM Department:; Room: -; Gender: M 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 cs11 05:13 Patient left the ED. af2 Signatures: Dispatcher [employer] EDMS Brandee Javed,ISRRAEL RN Alon Ross jh6 Grant Brothesr, DO cs11 Jyoti Acuña RN RN af2 Amy Seaman, Reg Reg hs2 Aminah Corley Jose, KJ PLANT OPERATOR HELPER jmv Chart Complete MTDD
== END 2017-01-05 05:13 | disposition home or self-care (01) ==
LOC: M ED 00:21
DX: K50.90 Crohn's disease, unspecified, without complications (principal); Z86.19 Personal history of other infectious and parasitic diseases; Z79.899 Other long term (current) drug therapy
CPT/HCPCS: 36415; 36600; 80048; 80076; 82150; 82550; 82553; 82803; 83690; 85025; 93005; 96365; 96375; 99284; J1100; J1170

== ENCOUNTER 2017-02-12 12:44 | Outpatient (CLI) | payer BC ==
[~2017-02-12] VITALS: Ht 175.3 cm; Wt 94.8 kg
[2017-02-12] MEDS ORDERED: NS 1,000 ML IV SCH (13:30)
[2017-02-12] MEDS ORDERED: PROPOFOL 200 MG/20 ML VIAL As Ordered ONE ×2 (16:13→16:18)
--- NOTE | 2017-02-12 16:45 | ROOR ---
Patient Name: Vijay Christensen Procedure Date: 02/12/2017 4:11 PM Date of : 1985 Age: 31 Room: [facility] Gender: Male Note Status: Finalized Procedure: Colonoscopy Indications: High risk colon cancer surveillance: Ulcerative pancolitis of 8 (or more) years duration Providers: Gumaro BRADLEY MD Referring MD: Eva COBB NP Requesting Provider: Medicines: Monitored Anesthesia Care Complications: No immediate complications. Procedure: Pre-Anesthesia Assessment: - The heart rate, respiratory rate, oxygen saturations, blood pressure, adequacy of pulmonary ventilation, and response to care were monitored throughout the procedure. The Colonoscope was introduced through the anus and advanced to 5 cm into the ileum. The colonoscopy was performed without difficulty. The patient tolerated the procedure well. The quality of the bowel preparation was good. Findings: The perianal and digital rectal examinations were normal. The terminal ileum appeared normal. Inflammation was found in a continuous and circumferential pattern from the anus to the descending colon. This was mild in severity, and when compared to previous examinations, the findings are improved. One to 2 biopsies were taken every 10 cm with a cold forceps from the ascending colon, transverse colon, descending colon, sigmoid colon and rectum for dysplasia surveillance and ulcerative colitis surveillance. These biopsy specimens were sent to Pathology. Pseudopolyps were found in the sigmoid colon. This was biopsied with a cold forceps for histology. A 7 mm polyp was found in the distal sigmoid colon. The polyp was semi-pedunculated. The polyp was removed with a hot snare. Resection and retrieval were complete. For hemostasis, two hemostatic clips were successfully placed (MR conditional). There was no bleeding at the end of the procedure. Impression: - Mild left-sided ulcerative colitis. Continuous erythema/inflammation was found from the anus to the descending colon. This was mild in severity. The findings are improved compared to previous examinations. Biopsied. - A few small pseudopolyps in the sigmoid colon. Biopsied. - One 7 mm polyp in the distal sigmoid colon, removed with a hot snare. Resected and retrieved. Clips (MR conditional) were placed. - The rest of the colon and terminal ileum are normal in appearance. - Segmental biopsies were taken througout the colon. Recommendation: - Telephone endoscopist for pathology results in 2 weeks. - Repeat colonoscopy for surveillance based on pathology results. - Return to my office as previously scheduled. Gumrao Bradley MD Gumaro BRADLEY MD 02/12/2017 4:45:11 PM This report has been signed electronically. Number of Addenda: 0 Note Initiated On: 02/12/2017 4:11 PM Estimated Blood Loss: Estimated blood loss: none.
[2017-02-12 17:06] VITALS: BP 128/87
== END 2017-02-12 17:15 | disposition home or self-care (01) ==
LOC: M OPP 12:44
PROVIDERS: ATTEND Internal Medicine Gastroenterology
DX: K51.00 Ulcerative (chronic) pancolitis without complications (principal); K51.40 Inflammatory polyps of colon without complications; K51.50 Left sided colitis without complications; K63.5 Polyp of colon; J45.909 Unspecified asthma, uncomplicated; A04.7 Enterocolitis due to Clostridium difficile; R06.83 Snoring; Z79.899 Other long term (current) drug therapy

== ENCOUNTER 2017-07-14 21:31 | Emergency (ER) | payer SELFPAY ==
[~2017-07-14] VITALS: Ht 175.3 cm; Wt 90.9 kg
[~2017-07-14 21:31] MED LIST changes: -MORP10EL PO; +MORP10SO PO; -MS C30TA PO; +MS C30TA6 PO
[2017-07-14 21:32] VITALS: BP 143/107
[2017-07-14] MEDS ORDERED: IBUPROFEN 600 MG TAB PO ONE (22:45)
[2017-07-14] MEDS ORDERED: CARISOPRODOL 350 MG TAB PO ONE (22:45)
[2017-07-14] MEDS ORDERED: SOMA350T PO (22:51)
[2017-07-14] MEDS ORDERED: IBUP-1022 PO (22:51)
== END 2017-07-14 23:00 | disposition home or self-care (01) ==
LOC: M ED 21:31
DX: S39.012A Strain of muscle, fascia and tendon of lower back, initial encounter (principal); X50.0XXA Overexertion from strenuous movement or load, initial encounter; Y92.89 Other specified places as the place of occurrence of the external cause; Y93.89 Activity, other specified; Y99.9 Unspecified external cause status

== ENCOUNTER 2017-10-28 18:44 | Emergency (ER) | payer SELFPAY ==
[~2017-10-28] VITALS: Ht 154.9 cm; Wt 95.6 kg
[~2017-10-28 18:44] MED LIST changes: +IBUP-1022 PO; +SOMA350T PO
[2017-10-28] MEDS ORDERED: methylPREDNISolone INJ 125 MG/2 ML VIAL (J2930) IV ONE (19:30)
[2017-10-28] MEDS ORDERED: ONDANSETRON 4MG/2ML VIAL (J2405) IV ONE (19:30)
[2017-10-28] MEDS ORDERED: NS 1,000 ML IV ONE (19:30)
[2017-10-28] MEDS: MORPHINE 4 MG/ML 1ML SYRINGE IV PRN ×2 (19:44→21:14)
[2017-10-28 19:56] LABS: BASO # 0.1 10^3/uL (0.0-0.2); BASO % 1.1 % (0.0-1.0); EOS # 0.8 10^3/uL (0.0-0.50); EOS % 7.7 % (0.0-3.0); IMMATURE GRANULOCYTE % 0.4 % (0-0); LYMPH % 19.3 % (24.0-44.0); MEAN CORPUSCULAR HEMOGLOBIN 26.6 pg (27.0-33.0); MEAN CORPUSCULAR HGB CONC 31.9 g/dl (32.0-36.5); MEAN CORPUSCULAR VOLUME 83.5 fl (80.0-96.0); MONO % 9.7 % (0.0-5.0); NEUTROPHILS # 6.2 10^3/uL (1.8-7.7); NEUTROPHILS % 61.8 % (36.0-66.0); PLATELET COUNT, AUTOMATED 398 10^3/uL (150-450); WHITE BLOOD COUNT 10.1 10^3/uL (4.0-10.0)
[2017-10-28 20:10] LABS: INR 1.01
[2017-10-28] MEDS ORDERED: ISOVUE-370 76% 100ML VIAL (Q9967) As Ordered ONE (20:17)
[2017-10-28 20:18] LABS: ALBUMIN 3.8 GM/DL (3.2-5.2); ALBUMIN/GLOBULIN RATIO 0.83 (1.00-1.93); ALKALINE PHOSPHATASE 138 U/L (45-117); ALT/SGPT 22 U/L (12-78); AMYLASE 53 U/L (25-115); ANION GAP 9 MEQ/L (8-16); AST/SGOT 13 U/L (7-37); BILIRUBIN,DIRECT < 0.1 MG/DL (0.0-0.2); BILIRUBIN,TOTAL 0.2 MG/DL (0.2-1.0); BLOOD UREA NITROGEN 6 MG/DL (7-18); CALCIUM LEVEL 8.6 MG/DL (8.5-10.1); CARBON DIOXIDE LEVEL 27 MEQ/L (21-32); CHLORIDE LEVEL 104 MEQ/L (98-107); CREATININE FOR GFR 0.79 MG/DL (0.70-1.30); GLOMERULAR FILTRATION RATE > 60.0 (>60); GLUCOSE, FASTING 102 MG/DL (70-105); POTASSIUM SERUM 3.6 MEQ/L (3.5-5.1); SODIUM LEVEL 140 MEQ/L (136-145); TOTAL PROTEIN 8.4 GM/DL (6.4-8.2)
--- NOTE | 2017-10-28 21:00 | REPUSA ---
CT of the abdomen and pelvis with contrast Clinical statement: Pain. Technique: Multiple axial CT images were obtained from the base of the lungs through the floor of the pelvis utilizing 5 mm axial slices after administration of nonionic intravenous contrast. Coronal an d sagittal reconstructions were also obtained. Comparison: 10/02/2016. Findings: Chest: The visualized lung bases are clear. Abdomen: The liver, spleen, pancreas, kidneys, gallbladder, and adrenal glands are unremarkable. The aorta is within normal limits. There is no evidence of abdominal lymphadenopathy or ascites. Pelvis: The bowel is unremarkable, with no obstructive or inflammatory changes. The appendix is graciela l. The urinary bladder is within normal limits. The other pelvic structures appear grossly intact. Th ere is no evidence of pelvic lymphadenopathy or ascites. Bones: There are no suspicious osseous abnormalities seen. Impression: Unremarkable CT examination of the abdomen and pelvis.
[2017-10-28] MEDS ORDERED: PRED10TA2 PO (21:57)
[2017-10-28] MEDS ORDERED: ANUS2.5C2 PR (21:57)
[2017-10-28 22:05] VITALS: BP 137/88
== END 2017-10-28 22:05 | disposition home or self-care (01) ==
LOC: M ED 18:44
DX: K59.00 Constipation, unspecified (principal); K64.9 Unspecified hemorrhoids; J45.909 Unspecified asthma, uncomplicated; F41.9 Anxiety disorder, unspecified; F33.9 Major depressive disorder, recurrent, unspecified; K50.00 Crohn's disease of small intestine without complications
CPT/HCPCS: 74177; 80048; 80076; 81001; 82150; 83690; 85025; 85610; 85730; 96374; 96375; 96376; 99284; J2405; J2930; Q9967

== ENCOUNTER 2025-10-02 12:42 | Inpatient (IN) | payer OTHER, SELFPAY ==
[~2025-10-02] VITALS: Ht 175.3 cm; Wt 92.3 kg
[~2025-10-02 12:42] MED LIST changes: -AMBI5TAB PO; -IBUP-1022 PO; +IBUP600T42 PO; -K-TA10TA2 PO; -MORP10SO PO; +MORP10SO21 PO; +POTA-165 PO; +PRED10TA2 PO; +ZOLP-532 PO
[2025-10-02 13:57] LABS: BASO # 0.1 10^3/uL (0.0-0.2); BASO % 0.5 % (0.0-1.0); EOS # 0.1 10^3/uL (0.0-0.5); EOS % 0.2 % (0.0-3.0); LYMPH # 0.7 10^3/uL (1.5-5.0); LYMPH % 3.3 % (24.0-44.0); MONO # 2.0 10^3/uL (0.0-0.8); MONO % 9.0 % (2.0-8.0); NEUTROPHILS # 18.9 10^3/uL (1.5-8.5); NEUTROPHILS % 86.3 % (36.0-66.0); PLATELET COUNT, AUTOMATED 305 10^3/uL (150-450)
[2025-10-02] MEDS ORDERED: ISOVUE-370 76% 100 ML VIAL As Ordered ONE (14:19)
[2025-10-02 14:26] LABS: CK-MB VALUE MASS < 1.0 NG/ML (<3.6)
[2025-10-02 14:28] LABS: ALT/SGPT 33 U/L (7.0-40); AST/SGOT 28 U/L (<34); CPK CREATINE PHOSPHOKINASE 148 U/L (46-171)
[2025-10-02 14:31] LABS: INR 1.0
[2025-10-02] MEDS: NS (Normal Saline) 0.9% 1,000 ML IV ONE (14:43)
[2025-10-02] MEDS: KETOROLAC 30 MG/ML 1 ML VIAL IV ONE (14:43)
[2025-10-02] MEDS: AMPICILLIN SOD/SULBACTAM SOD 3 GM in DEXTROSE 5% (D5W) MINI-BAG PLU 100 ML IV ONE (15:14)
[2025-10-02] MEDS: ACETAMINOPHEN *IV* 1,000 MG in IV 1 EA IV ONE (15:47)
[2025-10-02] MEDS: LIDOCAINE W/EPINEPHrine 1% 20 ML VIAL SC ONE (16:50)
[2025-10-02] MEDS ORDERED: UPAD30TA PO (17:23)
[2025-10-02] MEDS ORDERED: ATIV1TAB10 PO (17:23)
[2025-10-02] MEDS ORDERED: HOME MED LIST COMPLETE! XX SCH (17:25)
[2025-10-02 18:36] LABS: C REACTIVE PROTEIN QUANTITATIV 10.93 MG/DL (<1.0)
[2025-10-02] MEDS: PANTOPRAZOLE 40MG TAB PO SCH (18:49)
[2025-10-02] MEDS: LORazepam 0.5 MG TAB PO PRN (18:53)
[2025-10-02 20:30] VITALS: BP 137/83; TEMP 97.9; O2SAT 97
[2025-10-02] MEDS: KETOROLAC 30 MG/ML 1 ML VIAL IV PRN (20:46)
[2025-10-02] MEDS ORDERED: AMPICILLIN SOD/SULBACTAM SOD 3 GM in DEXTROSE 5% (D5W) MINI-BAG PLU 100 ML IV SCH (21:00)
[2025-10-02] MEDS: AMPICILLIN SOD/SULBACTAM SOD 3 GM in DEXTROSE 5% (D5W) MINI-BAG PLU 100 ML IV SCH (21:12)
[2025-10-02 22:00] VITALS: BP 137/83; TEMP 97.9; O2SAT 97
[2025-10-03] MEDS: ACETAMINOPHEN 500 MG TAB PO PRN (02:08)
[2025-10-03 04:00] VITALS: BP 113/70; TEMP 100.3; O2SAT 96
[2025-10-03 06:45] LABS: PLATELET COUNT, AUTOMATED 276 10^3/uL (150-450)
[2025-10-03 07:49] LABS: ALT/SGPT 26 U/L (7.0-40); AST/SGOT 14 U/L (<34); CALCIUM LEVEL 8.9 MG/DL (8.5-10.1); CARBON DIOXIDE LEVEL 27 MMOL/L (20-31); CHLORIDE LEVEL 105 MMOL/L (98-107); CREATININE FOR GFR 0.94 MG/DL (0.70-1.30); GLOMERULAR FILTRATION RATE > 90.0 (>60); POTASSIUM SERUM 4.1 MMOL/L (3.5-5.1); SODIUM LEVEL 143 MMOL/L (136-145)
[2025-10-03 07:58] LABS: C REACTIVE PROTEIN QUANTITATIV 20.36 MG/DL (<1.0)
[2025-10-03 12:00] VITALS: BP 130/77; TEMP 98.1; O2SAT 97
[2025-10-03 19:44] VITALS: BP 138/79; TEMP 98.6; O2SAT 97
[2025-10-03] MEDS: ENOXAPARIN 40 MG/0.4 ML SYRINGE (J1650 PER 10MG) SC SCH (20:44)
[2025-10-04] MEDS: RAMELTEON 8 MG TAB PO PRN (01:16)
[2025-10-04 05:06] VITALS: BP 97/53; TEMP 98.8; O2SAT 94
[2025-10-04 05:57] LABS: BASO # 0.0 10^3/uL (0.0-0.2); BASO % 0.2 % (0.0-1.0); EOS # 0.0 10^3/uL (0.0-0.5); EOS % 0.1 % (0.0-3.0); LYMPH # 1.7 10^3/uL (1.5-5.0); LYMPH % 9.9 % (24.0-44.0); MONO # 1.2 10^3/uL (0.0-0.8); MONO % 7.1 % (2.0-8.0); NEUTROPHILS # 13.7 10^3/uL (1.5-8.5); NEUTROPHILS % 81.7 % (36.0-66.0); PLATELET COUNT, AUTOMATED 290 10^3/uL (150-450)
[2025-10-04 06:21] LABS: CALCIUM LEVEL 8.6 MG/DL (8.5-10.1); CARBON DIOXIDE LEVEL 27 MMOL/L (20-31); CHLORIDE LEVEL 105 MMOL/L (98-107); CREATININE FOR GFR 0.87 MG/DL (0.70-1.30); GLOMERULAR FILTRATION RATE > 90.0 (>60); POTASSIUM SERUM 3.6 MMOL/L (3.5-5.1); SODIUM LEVEL 143 MMOL/L (136-145)
[2025-10-04 06:35] LABS: C REACTIVE PROTEIN QUANTITATIV 12.51 MG/DL (<1.0)
[2025-10-04 11:43] VITALS: BP 125/62; TEMP 97.2; O2SAT 98
[2025-10-04 20:00] VITALS: BP 126/76; TEMP 97.8; O2SAT 96
[2025-10-04] MEDS: AUGMENTIN 875 MG TAB PO SCH (20:42)
[2025-10-05 04:00] VITALS: BP 111/57; TEMP 99.2; O2SAT 93
[2025-10-05 07:08] LABS: BASO # 0.0 10^3/uL (0.0-0.2); BASO % 0.3 % (0.0-1.0); EOS # 0.0 10^3/uL (0.0-0.5); EOS % 0.3 % (0.0-3.0); LYMPH # 1.9 10^3/uL (1.5-5.0); LYMPH % 16.0 % (24.0-44.0); MONO # 1.0 10^3/uL (0.0-0.8); MONO % 8.9 % (2.0-8.0); NEUTROPHILS # 8.5 10^3/uL (1.5-8.5); NEUTROPHILS % 72.6 % (36.0-66.0); PLATELET COUNT, AUTOMATED 301 10^3/uL (150-450)
[2025-10-05 07:26] LABS: C REACTIVE PROTEIN QUANTITATIV 4.75 MG/DL (<1.0)
[2025-10-05 07:28] LABS: CALCIUM LEVEL 8.6 MG/DL (8.5-10.1); CARBON DIOXIDE LEVEL 30 MMOL/L (20-31); CHLORIDE LEVEL 105 MMOL/L (98-107); CREATININE FOR GFR 0.87 MG/DL (0.70-1.30); GLOMERULAR FILTRATION RATE > 90.0 (>60); POTASSIUM SERUM 3.7 MMOL/L (3.5-5.1); SODIUM LEVEL 143 MMOL/L (136-145)
[2025-10-05] MEDS: UNRESOLVED PATIENT OWN MED ORDER XX SCH (09:00)
[2025-10-05] MEDS: predniSONE 20 MG TAB PO SCH (09:10)
[2025-10-05] MEDS ORDERED: AMOX875T2 PO (09:46)
[2025-10-05] MEDS ORDERED: PRED20TA PO (09:46)
[2025-10-05 12:00] VITALS: BP 133/78; TEMP 98.5; O2SAT 94
== END 2025-10-05 13:12 | disposition home or self-care (01) | DRG 97 ==
LOC: M ED 12:42 → M ED INP 12:43 → M MS4PR 20:21 → OBSVTOIN 10-03 10:17
PROVIDERS: ADMIT Internal Medicine; ATTEND Internal Medicine
PROC: 0C9PXZZ Drainage of Tonsils, External Approach (ICD-10-PCS; principal; 2025-10-02)
DX: J36 Peritonsillar abscess (principal); F41.9 Anxiety disorder, unspecified; F39 Unspecified mood [affective] disorder; K50.90 Crohn's disease, unspecified, without complications; Z79.899 Other long term (current) drug therapy